=== PATIENT | male | born 1960 | race Caucasian/White ===

== ENCOUNTER 2022-11-02 10:31 | Emergency (ER) | payer BC ==
--- NOTE | 2022-11-02 10:33 | ERPHSYRPT ---
- History of Present Illness Time Seen by Provider: 11/02/22 10:33 Source: patient Exam Limitations: no limitations Physician History: This is a 62-year-old white male patient who was at work and pushing heavy equipment when it fell forward as he did. He landed on his right anterior lateral chest and felt a pop sensation. He has had pain for the last 4 days after this occurred. Patient has a history of hypertension. He has no known drug allergies. He took Aleve yesterday but no other medications. It hurts in this same area to take a deep breath. Occurred: days ago (4) Reason for Fall: lost balance Injuries/Pain Location: lower (Right lower anterior lateral ribs) Loss of Consciousness: no loss of consciousness Quality: sharpness, stabbing Severity of Pain-Max: moderate Severity of Pain-Current: moderate Associated Symptoms (Fall): other (Right anterior lateral rib pain), No chest pain, No shortness of breath Allergies/Adverse Reactions: No Known Drug Allergies Allergy (Verified 11/02/22 10:39) Home Medications: Celecoxib 100 mg [celeBREX 100 MG] 100 mg PO DAILY 11/02/22 [History] Lisinopril/Hydrochlorothiazide [Lisinopril-Hctz 20-25 mg Tab] 1 ea DAILY 11/02/22 [History] Travel Risk - International Travel Have you traveled outside of the country in past 3 weeks: No - Coronavirus Screening Are you exhibiting any of the following symptoms?: No Close contact with a COVID-19 positive Pt in past 14-21 Days: No - Review of Systems Constitutional: No Symptoms Eyes: No Symptoms Ears, Nose, & Throat: No Symptoms Respiratory: Other (Right anterior lateral rib pain) Abdominal/Gastrointestinal: No Symptoms - Past Medical History Pertinent Past Medical History: Yes Neurological History: No Pertinent History ENT History: No Pertinent History Cardiac History: Hypertension Respiratory History: No Pertinent History Endocrine Medical History: No Pertinent History Musculoskeletal History: Other GI Medical History: No Pertinent History History: No Pertinent History Psycho-Social History: No Pertinent History Male Reproductive Disorders: No Pertinent History Other Medical History: R knee swelling-knee scope prior to swelling problems - Past Surgical History Past Surgical History: Yes Neuro Surgical History: No Pertinent History Cardiac: Cardiac Catheterization Respiratory: No Pertinent History Gastrointestinal: No Pertinent History Genitourinary: No Pertinent History Musculoskeletal: Orthopedic Surgery, Other Male Surgical History: No Pertinent History Other Surgical History: L rotator cuff repair. R knee arthroscopy, lower back artifical disks. - Social History Smoking Status: Former smoker Exposure to second hand smoke: Yes Drug Use: none - Nursing Vital Signs Nursing Vital Signs: Initial Vital Signs Temperature 97.9 F 11/02/22 10:44 Pulse Rate 62 11/02/22 10:44 Respiratory Rate 18 11/02/22 10:44 Blood Pressure 197/98 11/02/22 10:44 O2 Sat by Pulse Oximetry 96 11/02/22 10:44 Pain Scale Pain Intensity 8 Ordered Tests: Active Orders 24 hr Category Date Time Status CHEST 2 VIEWS (PA AND LAT) Stat Exams 11/02/22 11:01 Completed RIBS UNILATERAL Stat Exams 11/02/22 11:01 Completed Medication Summary Discontinued Medications Generic Name Dose Route Start Last Admin Trade Name Freq PRN Reason Stop Dose Admin Methylprednisolone Sodium 0 mg 11/02/22 11:15 11/02/22 11:48 Succinate 125 mg/ Sterile IM 11/02/22 11:16 125 mg Water 2 ml STAT ONE Administration Methylprednisolone Sodium Succinate Confirm 11/02/22 11:44 Methylprednis Sod Succ 125 Mg/2 Ml Vial Administered 11/02/22 11:45 Dose 125 mg .ROUTE .STK-MED ONE Morphine Sulfate 4 mg 11/02/22 11:14 11/02/22 11:47 Morphine Sulfate 4 Mg/Ml Injection IM 11/02/22 11:15 4 mg STAT ONE Administration Morphine Sulfate Confirm 11/02/22 11:44 Morphine Sulfate 4 Mg/Ml Injection Administered 11/02/22 11:45 Dose 4 mg .ROUTE .STK-MED ONE Ondansetron HCl 4 mg 11/02/22 11:15 11/02/22 11:47 Zofran 4 Mg/Udtablet Orally Disintegrating PO 11/02/22 11:16 4 mg STAT ONE Administration Ondansetron HCl Confirm 11/02/22 11:43 Zofran 4 Mg/Udtablet Orally Disintegrating Administered 11/02/22 11:44 Dose 4 mg .ROUTE .STK-MED ONE Orphenadrine Citrate 60 mg 11/02/22 11:15 11/02/22 11:47 Orphenadrine Citrate 60 Mg/2 Ml Vial IM 11/02/22 11:16 60 mg STAT ONE Administration Orphenadrine Citrate Confirm 11/02/22 11:44 Orphenadrine Citrate 60 Mg/2 Ml Vial Administered 11/02/22 11:45 Dose 60 mg .ROUTE .STK-MED ONE Sterile Water Confirm 11/02/22 11:43 Water For Injection,Sterile 10 Ml Vial Administered 11/02/22 11:44 Dose 10 ml IJ .STK-MED ONE - Progress Progress Note: 11/02/22 12:19 Chest x-ray/x-ray right ribs shows acute fracture of right ribs #7 8 and 9. No hemothorax and no pneumothorax. Counseled pt/family regarding: diagnosis, need for follow-up, rad results - Departure Departure Disposition: Home Clinical Impression: Ribs, multiple fractures Condition: Stable Critical Care Time: No Referrals: LUIS VAUGHN MD [Primary Care Provider] - Follow up/PCP as directed Additional Instructions: Take your medication as prescribed. Follow-up with your primary care provider for further pain management as needed. Prescriptions: Oxycodone HCl/Acetaminophen [Percocet 5-325 mg Tablet] 1 each PO Q8H PRN PRN #9 tablet MDD 3 PRN Reason: Moderate To Severe Pain Prednisone 10 mg [Deltasone 10 mg] 10 mg PO TID #12 tablet
[2022-11-02 10:54] VITALS: BP 197/98; PULSE 62; O2SAT 96
[2022-11-02] MEDS ORDERED: MORPHINE SULFATE 4 MG INJ IM ONE (11:14)
[2022-11-02] MEDS ORDERED: Norflex 60 MG/2 ML IM ONE (11:15)
[2022-11-02] MEDS ORDERED: ZOFRAN ODT 4 MG PO ONE (11:15)
[2022-11-02] MEDS ORDERED: solu-MEDROL 125 MG, Sterile H2O 10 ml 2 ML IM ONE ×2 (11:15)
[2022-11-02] MEDS ORDERED: ZOFRAN ODT 4 MG ONE (11:43)
[2022-11-02] MEDS ORDERED: Sterile H2O 10 ml IJ ONE (11:43)
[2022-11-02] MEDS ORDERED: solu-MEDROL ONE (11:44)
[2022-11-02] MEDS ORDERED: MORPHINE SULFATE 4 MG INJ ONE (11:44)
[2022-11-02] MEDS ORDERED: Norflex 60 MG/2 ML ONE (11:44)
--- NOTE | 2022-11-02 12:14 | XRAY ---
Indication: Pain following fall. Comparison: None 2 view right ribs demonstrates nondisplaced acute fractures anterior arc 7-9 ribs without pneumothorax/hemothorax. Elsewhere osteopenia, mild/moderate degenerative changes throughout spine, moderate right shoulder degenerative arthropathy, and resection distal right clavicle.
--- NOTE | 2022-11-02 12:14 | XRAY ---
Indication: Right chest pain following fall. Comparison: None PA/lateral chest inflated and clear. Heart not enlarged. Bony thorax intact with osteopenia, mild/moderate degenerative changes throughout spine, resection distal clavicle, and minimal remote T10/T11 compression deformities. Right ribs reported separately.
== END 2022-11-02 12:40 | disposition home or self-care (01) ==
LOC: ED 10:31
DX: S22.41XA Multiple fractures of ribs, right side, initial encounter for closed fracture (principal); W19.XXXA Unspecified fall, initial encounter; Y99.0 Civilian activity done for income or pay; R07.81 Pleurodynia; I10 Essential (primary) hypertension; Z79.899 Other long term (current) drug therapy; Z79.891 Long term (current) use of opiate analgesic; Z79.52 Long term (current) use of systemic steroids
CPT/HCPCS: 71046; 71100; 96372; 99283; J2270; J2360; J2930; Q0162